=== PATIENT | male | born 1945 | race Caucasian/White ===

== ENCOUNTER 2016-08-13 03:15 | Emergency (ER) | payer OTHER, MEDICARE ==
--- NOTE | 2016-08-13 05:45 | DIAGNOSTIC IMAGING REPORT ---
PROCEDURE: XR CHEST 2 VIEW INDICATION: FEVER TECHNIQUE: PA and lateral views. COMPARISON: None. FINDINGS: Lungs are clear. Heart and mediastinum are normal. Thorax is normal. IMPRESSION: 1. Negative chest.
--- NOTE | 2016-08-13 06:12 | ED ORDER SUMMARY ---
..... Patient: AMBER NEW OrderSheet [facility] VisitID: [id number] [place] [address] 70y, M Registration Date/Time: 08/13/2016 ORDER SHEET Weight: 77.1 kg (stated) Allergies: No Known Drug Allergy GENERAL ORDERS: Chest 2V Urgent (03:57 08/13/2016 Cassie MAGUIRE) (Ack 3:59 CHategekimana) (4:24 RFay) Rapid Influenza Screen (Nasal Pharyngeal) (swab) Urgent (03:58 08/13/2016 Cassie MAGUIRE) (Ack 3:59 Leeekimana) (4:49 Pedro Pablo R.N.) CBC w Diff Urgent (03:58 08/13/2016 Cassie MAGUIRE) (Ack 3:59 CHategekimana) (Cancelled: Change in patient condition4:28 Cassie MAGUIRE) CMP Urgent (03:58 08/13/2016 Cassie MAGUIRE) (Ack 3:59 Liaegekimana) (Cancelled: Change in patient condition4:28 Cassie MAGUIRE) UA-Culture if indicated Urgent (03:58 08/13/2016 Cassie MAGUIRE) (Ack 3:59 Liaegekimana) (4:49 Pedro Pablo Felipe.Laine.) MEDICATION ORDERS: IV FLUIDS: IV NS : initial bolus 1000 mL (1000 mL/hr), then none - (NOW) (03:57 08/13/2016 Cassie MAGUIRE) (Cancelled: Change in patient condition4:28 Cassie MAGUIRE) ORDER SHEET NOTES: [Electronically signed by Florencio Cottrell R.N. (07:02 08/13/2016)] [Electronically signed by Rebecca Laboy MD (21:47 08/17/2016)] [Electronically locked/signed by Florencio Cottrell R.N. (07:02 08/13/2016)]
--- NOTE | 2016-08-13 06:12 | ED CLINICAL REPORT ---
Clinical Report - Physicians/Mid Levels [facility] [address] [place] [address] 08/13/2016 3:18 Patient: AMBER NEW Time Seen: 03:43. Arrived- By private vehicle. Historian- patient. HISTORY OF PRESENT ILLNESS Chief Complaint: VOMITING and DIARRHEA. chills, body aches. This started about 5 hours ago and is now gone. No recent travel. He has had nausea, vomiting and diarrhea. No black stools, bloody stools, abdominal pain, constipation or flank pain. No known contact with a sick individual or change in routine. Has not recently been camping or on antibiotics. Possible bad food exposure. The illness is described as moderate. (Pt states sx started after he ate yesterday evening, but that he did not vomit until about 2200. Pt states that actually, he now feels almost completely better, other than still feeling a little achy.). Similar symptoms previously: Recent medical care: Not recently seen/assessed. REVIEW OF SYSTEMS No fever, difficulty with urination, dark urine, headache or dizziness. No sore throat, cough, chest pain, difficulty breathing or excessive urination. No skin rash, jaundice, back pain, fainting episodes or blurred vision. The patient has had muscle aches. All systems otherwise negative, except as recorded above. PAST HISTORY Problems: Chronic kidney disease stage 3. Myelodysplastic syndrome (clinical). Hypertension. Additional Surgeries: no known surgeries. Medications: Aspir-81 Oral. Atorvastatin Calcium Oral. Tamsulosin HCl Oral. Finasteride Oral. AmLODIPine Besylate Oral. Metoprolol Tartrate Oral. Allergies: No Known Drug Allergy. SOCIAL HISTORY Never smoker. No alcohol use or drug use. ADDITIONAL NOTES The nursing notes have been reviewed. PHYSICAL EXAM Vital Signs: 08/13/2016 07:00 BP: 110/76. HR: 88. RR: 16. O2 saturation: 100%. Temp: 98 F. 08/13/2016 03:30 HR: 100. RR: 16. O2 saturation: 100%. Temp: 98.1 F. Have been reviewed. Appearance: Alert. Oriented X3. No acute distress. Eyes: Pupils equal, round and reactive to light. Eyes normal inspection. ENT: Nose normal. Neck: Normal inspection. Neck supple. CVS: Normal heart rate and rhythm. Heart sounds normal. Pulses normal. Respiratory: No respiratory distress. Breath sounds normal. Abdomen: Soft and nontender. Back: Normal inspection. Skin: Skin warm and dry. Normal skin color. No rash. Normal skin turgor. Extremities: Extremities exhibit normal ROM. No lower extremity edema. Neuro: Oriented X 3. No motor deficit. No sensory deficit. LABS, X-RAYS, AND EKG Chest X-ray: No acute disease. Normal lung markings present. Normal heart size. Mediastinum normal. Great vessels normal. Soft tissues normal. No infiltrate. No fracture. No bony lesion present. Views: PA and lateral. Technique: good. The X-rays were independently viewed by me and interpreted contemporaneously by me. Prior films were not available for comparison. Laboratory Tests: UA-Culture if indicated: (TERRENCE: 08/13/2016 05:39) ( [facility] [place] 08/13/2016 05:55) Final results Test Result Flag Units (Reference) URINE COLOR YELLOW URINE APPEARANCE CLEAR URINE GLUCOSE NEGATIVE (NEGATIVE) URINE BILIRUBIN NEGATIVE (NEGATIVE) URINE KETONE NEGATIVE (NEGATIVE) URINE SPECIFIC GRAVITY 1.010 (1.010-1.030) URINE PH 8.0 (5.0-8.0) URINE PROTEIN NEGATIVE (NEGATIVE) URINE UROBILINOGEN 0.2 EU/dL (0.2-1.0) URINE NITRITE NEGATIVE (NEGATIVE) URINE BLOOD NEGATIVE (NEGATIVE) URINE LEUK ESTERASE NEGATIVE (NEGATIVE) URINE RBC 0-1 rbc/hpf (0-1) URINE WBC 0-1 wbc/hpf (0-1) URINE EPITHELIAL CELLS 0-1 EPI/hpf (0-5) URINE BACTERIA NONE SEEN (NONE SEEN) URINE COMMENT CULT NOT INDICATED URINE CULTURES ARE SET-UP BASED ON THE FOLLOWING CRITERIA:POSITIVE NITRITEPOSITIVE LEUKOCYTE ESTERASEGREATER THAN 10 WHITE BLOOD CELLSMODERATE (2+) OR GREATER BACTERIA Rapid Influenza Screen: (TERRENCE: 08/13/2016 04:40) ( [facility] [place] 08/13/2016 05:07) Final results SPECIMEN DESCRIPTION: SWAB Test Result Flag Units (Reference) RAPID INFLUENZA SCREEN CALLED TO: NA -- DATE: 08/13/16 INFLUENZA A: NEGATIVE SCREEN FOR INFLUENZA A INFLUENZA B: NEGATIVE SCREEN FOR INFLUENZA B . Pulse Oximetry: 08/13/2016 03:30 O2 saturation: 100%. (FIO2 - room air). Interpretation: normal. PROGRESS AND PROCEDURES Course of Care: Pt declined any medication in the ED, stating that his nausea was better, and in fact, that he was thirsty. Pt was given ice chips, which he did tolerate. CXR, influenza test, and UA were all negative. Pt was hemodymically stable, and no emergent condition was identified. Patient and spouse counseled in person regarding the patient's stable condition, test results, diagnosis and need for follow-up. Concerns were addressed. Old medical records reviewed. Disposition: Discharged. Condition: stable and improved. CLINICAL IMPRESSION Acute viral gastroenteritis. INSTRUCTIONS Drink plenty of fluids. (Your urinalysis, flu test, and chest x-ray all look good. You most likely caught one of the many "stomach flu" viruses going around. Generally, these are short-lived, and pass on their own.). Warnings: GENERAL WARNINGS: Return or contact your physician immediately if your condition worsens or changes unexpectedly, if not improving as expected, or if other problems arise. Your Current Medications: CONTINUE TAKING THE FOLLOWING MEDICATIONS: AmLODIPine Besylate Oral. Aspir-81 Oral. Atorvastatin Calcium Oral. Finasteride Oral. Metoprolol Tartrate Oral. Tamsulosin HCl Oral. Follow-up: Follow up with your doctor as needed. Understanding of the discharge instructions verbalized by patient and family. (Electronically signed by Rebecca Laboy MD 08/17/2016 21:47)
--- NOTE | 2016-08-13 06:12 | ED NURSING NOTES ---
Clinical Report - Nurses [facility] [address] [place] [address] 08/13/2016 3:18 Patient: AMBER NEW TRIAGE Acuity: LEVEL 3. Chief Complaint: ABDOMINAL PAIN, NAUSEA and VOMITING and FEVER, CHILLS and ACHES. --03:37 Florencio Cottrell R.N. 03:30 08/13/16. HR: 100. RR: 16. O2 saturation: 100%. Temp: 98.1 F. --03:37 Florencio Cottrell R.N. Weight: 77.1 kg stated. Height/Length: 74 inches Per Patient. BMI: 21.8. --03:36 Florencio Cottrell R.N. Medications Metoprolol Tartrate Oral. --03:31 Florencio Cottrell R.N. AmLODIPine Besylate Oral. --03:32 Florencio Cotrtell R.N. Finasteride Oral. --03:32 Florencio Cottrell R.N. Tamsulosin HCl Oral. --03:32 Florencio Cottrell R.N. Atorvastatin Calcium Oral. --03:32 Florencio Cottrell R.N. Aspir-81 Oral. --03:33 Florencio Cottrell R.N. Allergies No Known Drug Allergy. --07:02 Florencio Cottrell R.N. History Onset. (5 1/2 hours ago). He has had nausea, vomiting, diarrhea and abdominal pain. Last oral intake by patient was yesterday (1900). 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 FALL RISK ASSESSMENT: Fall risk assessment completed. No fall risk identified. NUTRITIONAL RISK ASSESSMENT: The nutritional risk assessment revealed no deficiencies. FUNCTIONAL ASSESSMENT: Functional assessment: no impairments noted. LEARNING NEEDS ASSESSMENT: The learning needs assessment revealed no barriers. SKIN INTEGRITY ASSESSMENT: Skin integrity risk assessment completed. No skin integrity risk identified. --03:37 Florencio Cottrell R.N. PROBLEMS: Chronic kidney disease stage 3. Myelodysplastic syndrome (clinical). Hypertension. --03:35 Florencio Cottrell R.N. Interventions ID band on patient. --03:37 Florencio Cottrell R.N. PHYSICAL ASSESSMENT GENERAL / NEURO / PSYCH: Alert. Oriented X 4. Appears in no acute distress. HEENT: Mucous membranes are pink. RESPIRATORY: Respirations not labored. CVS: Capillary refill less than 2 seconds. SKIN: Skin is warm and dry. --03:37 Florencio Cottrell R.N. NURSING PROGRESS NOTES Patient gowned. Head of bed elevated. Reassurance given. Patient identifiers checked. Call light placed in reach. Bed placed in lowest position. Brakes of bed on. --03:37 Florencio Cottrell R.N. DISPOSITION / DISCHARGE Departure time: 0655. No learning barriers present. Discharge instructions provided and reviewed with the patient. Reviewed warnings. Reviewed medication(s). Treatments reviewed. Reviewed referrals. Patient verbalized understanding. Written instructions provided in Slovenian. The patient was discharged by the physician. He was discharged home. He left the Emergency Department ambulatory and via private vehicle. Patient driving. --07:01 Florencio Cottrell R.N. 07:00 08/13/16. BP: 110/76. HR: 88. RR: 16. O2 saturation: 100%. Temp: 98 F. Pain level now 0/10. --07:01 Florencio Cottrell R.N. Locked/Released at 08/13/2016 7:02 by Florencio Cottrell R.N.
--- NOTE | 2016-08-13 06:12 | ED NURSING NOTES ---
Clinical Report - Nurses [place] [address] [place] [address] 08/13/2016 3:18 Patient: AMBER NEW TRIAGE Acuity: LEVEL 3. Chief Complaint: ABDOMINAL PAIN, NAUSEA and VOMITING and FEVER, CHILLS and ACHES. --03:37 Florencio Cottrell R.N. 03:30 08/13/16. HR: 100. RR: 16. O2 saturation: 100%. Temp: 98.1 F. --03:37 Florencio Cottrell R.N. Weight: 77.1 kg stated. Height/Length: 74 inches Per Patient. BMI: 21.8. --03:36 Florencio Cottrell R.N. Medications Metoprolol Tartrate Oral. --03:31 Florencio Cottrell R.N. AmLODIPine Besylate Oral. --03:32 Florencio Cottrell R.N. Finasteride Oral. --03:32 Florencio Cottrell R.N. Tamsulosin HCl Oral. --03:32 Florencio Cottrell R.N. Atorvastatin Calcium Oral. --03:32 Florencio Cottrell R.N. Aspir-81 Oral. --03:33 Florencio Cottrell R.N. Allergies No Known Drug Allergy. --07:02 Florencio Cottrell R.N. History Onset. (5 1/2 hours ago). He has had nausea, vomiting, diarrhea and abdominal pain. Last oral intake by patient was yesterday (1900). 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 FALL RISK ASSESSMENT: Fall risk assessment completed. No fall risk identified. NUTRITIONAL RISK ASSESSMENT: The nutritional risk assessment revealed no deficiencies. FUNCTIONAL ASSESSMENT: Functional assessment: no impairments noted. LEARNING NEEDS ASSESSMENT: The learning needs assessment revealed no barriers. SKIN INTEGRITY ASSESSMENT: Skin integrity risk assessment completed. No skin integrity risk identified. --03:37 Florencio Cottrell R.N. PROBLEMS: Chronic kidney disease stage 3. Myelodysplastic syndrome (clinical). Hypertension. --03:35 Florencio Cottrell R.N. Interventions ID band on patient. --03:37 Florencio Cottrell R.N. PHYSICAL ASSESSMENT GENERAL / NEURO / PSYCH: Alert. Oriented X 4. Appears in no acute distress. HEENT: Mucous membranes are pink. RESPIRATORY: Respirations not labored. CVS: Capillary refill less than 2 seconds. SKIN: Skin is warm and dry. --03:37 Florencio Cottrell R.N. NURSING PROGRESS NOTES Patient gowned. Head of bed elevated. Reassurance given. Patient identifiers checked. Call light placed in reach. Bed placed in lowest position. Brakes of bed on. --03:37 Florencio Cottrell R.N. DISPOSITION / DISCHARGE Departure time: 0655. No learning barriers present. Discharge instructions provided and reviewed with the patient. Reviewed warnings. Reviewed medication(s). Treatments reviewed. Reviewed referrals. Patient verbalized understanding. Written instructions provided in Portuguese. The patient was discharged by the physician. He was discharged home. He left the Emergency Department ambulatory and via private vehicle. Patient driving. --07:01 Florencio Cottrell R.N. 07:00 08/13/16. BP: 110/76. HR: 88. RR: 16. O2 saturation: 100%. Temp: 98 F. Pain level now 0/10. --07:01 Florencio Cottrell R.N. Locked/Released at 08/13/2016 7:02 by Florencio Cottrell R.N.
--- NOTE | 2016-08-13 06:12 | ED ORDER SUMMARY ---
..... Patient: AMBER NEW OrderSheet [facility] VisitID: [id number] [place] [address] 70y, M Registration Date/Time: 08/13/2016 ORDER SHEET Weight: 77.1 kg (stated) Allergies: No Known Drug Allergy GENERAL ORDERS: Chest 2V Urgent (03:57 08/13/2016 Cassie MAGUIRE) (Ack 3:59 CHategekimana) (4:24 RFay) Rapid Influenza Screen (Nasal Pharyngeal) (swab) Urgent (03:58 08/13/2016 Cassie MAGUIRE) (Ack 3:59 Leeekimana) (4:49 Pedro Pablo R.N.) CBC w Diff Urgent (03:58 08/13/2016 Cassie MAGUIRE) (Ack 3:59 CHategekimana) (Cancelled: Change in patient condition4:28 Cassie MAGUIRE) CMP Urgent (03:58 08/13/2016 Cassie MAGUIRE) (Ack 3:59 Liaegekimana) (Cancelled: Change in patient condition4:28 Cassie MAGUIRE) UA-Culture if indicated Urgent (03:58 08/13/2016 Cassie MAGUIRE) (Ack 3:59 Liaegekimana) (4:49 Pedro Pablo Felipe.Laine.) MEDICATION ORDERS: IV FLUIDS: IV NS : initial bolus 1000 mL (1000 mL/hr), then none - (NOW) (03:57 08/13/2016 Cassie MAGUIRE) (Cancelled: Change in patient condition4:28 Cassie MAGUIRE) ORDER SHEET NOTES: [Electronically signed by Florencio Cottrell R.N. (07:02 08/13/2016)] [Electronically signed by Rebecca Laboy MD (21:47 08/17/2016)] [Electronically locked/signed by Florencio Cottrell R.N. (07:02 08/13/2016)]
--- NOTE | 2016-08-17 21:47 | ED MED RECONCILIATION SUMMARY ---
Patient: AMBER NEW Medication Reconciliation Report [facility] VisitID: [id number] [address] [place] [address] 70y, M Registration Date/Time: 08/13/2016 Weight: 77.1 kg Height/Length: 74 in. BMI: 21.8 ALLERGIES: No Known Drug Allergy The patient's Home Medications are listed below: CONTINUE TAKING THE FOLLOWING MEDICATIONS: AmLODIPine Besylate Oral Aspir-81 Oral Atorvastatin Calcium Oral Finasteride Oral Metoprolol Tartrate Oral Tamsulosin HCl Oral The source(s) of the original Home Medication information: Not obtained. The following Medications were given to the patient in the Emergency Department: None. The following Medications were prescribed to the patient: None.
--- NOTE | 2016-08-17 21:47 | ED MAR SUMMARY ---
..... Medication Administration Record [facility] [address] [place], [place] [id number] Patient: AMBER NEW Visit ID: [id number] 70y, M Weight: 77.1 kg Height/Length: 74 in BMI: 21.8 ALLERGIES: No Known Drug Allergy
--- NOTE | 2016-08-17 21:47 | ED MAR SUMMARY ---
..... Medication Administration Record [facility] [address] [place], [place] [id number] Patient: AMBER NEW Visit ID: [id number] 70y, M Weight: 77.1 kg Height/Length: 74 in BMI: 21.8 ALLERGIES: No Known Drug Allergy
--- NOTE | 2016-08-17 21:47 | ED MED RECONCILIATION SUMMARY ---
Patient: AMBER NEW Medication Reconciliation Report [facility] VisitID: [id number] [address] [place] [address] 70y, M Registration Date/Time: 08/13/2016 Weight: 77.1 kg Height/Length: 74 in. BMI: 21.8 ALLERGIES: No Known Drug Allergy The patient's Home Medications are listed below: CONTINUE TAKING THE FOLLOWING MEDICATIONS: AmLODIPine Besylate Oral Aspir-81 Oral Atorvastatin Calcium Oral Finasteride Oral Metoprolol Tartrate Oral Tamsulosin HCl Oral The source(s) of the original Home Medication information: Not obtained. The following Medications were given to the patient in the Emergency Department: None. The following Medications were prescribed to the patient: None.
--- NOTE | 2016-08-17 21:47 | ED DISCHARGE INSTRUCTIONS ---
Patient: AMBER NEW General Instructions [facility] VisitID: [id number] [place] [address] 70y, M Registration Date/Time: 08/13/2016 Acute viral gastroenteritis. INSTRUCTIONS Drink plenty of fluids. (Your urinalysis, flu test, and chest x-ray all look good. You most likely caught one of the many "stomach flu" viruses going around. Generally, these are short-lived, and pass on their own.). Warnings: GENERAL WARNINGS: Return or contact your physician immediately if your condition worsens or changes unexpectedly, if not improving as expected, or if other problems arise. Your Current Medications: CONTINUE TAKING THE FOLLOWING MEDICATIONS: AmLODIPine Besylate Oral. Aspir-81 Oral. Atorvastatin Calcium Oral. Finasteride Oral. Metoprolol Tartrate Oral. Tamsulosin HCl Oral. Follow-up: Follow up with your doctor as needed. Understanding of the discharge instructions verbalized by patient and family. ADDITIONAL INFORMATION Viral Gastroenteritis (6Yr-Adult) Gastroenteritis is another name for thestomach flu.It is most often caused by a virus that affects the stomach and intestinal tract. Symptoms include stomach cramping and fever, vomiting and/or diarrhea, and can last from 2 to 7 days. The danger from repeated vomiting or diarrhea is dehydration. This is the loss of too much water and minerals from the body. When this occurs, body fluids must be replaced. Antibiotics are not effective for this illness, but simple home treatment will be helpful. Home Care If symptoms are severe, rest at home for the next 24 hours. Avoid tobacco, caffeine, and alcohol use, which can worsen symptoms. Acetaminophen (Tylenol) or ibuprofen (Motrin, Advil) may be usedfor fever or pain unless another medication was prescribed. NOTE: If you have chronic liver or kidney disease or ever had a stomach ulcer or GI bleeding, talk with your doctor before using these medicines. Aspirin should never be used in anyone under 18 years of age who is ill with a fever. It may cause severe liver damage. If medicines for diarrhea or vomiting were prescribed, be sure they are takenonly as directed. If vomiting, drink small amounts of clear fluids (such as water, sports drinks, clear sodas) at frequent intervals to prevent dehydration. Start with 1 to 2 tablespoons every 10 minutes. Once vomiting stops, follow these guidelines: During The First 12 To 24 Hours follow the diet below: Beverages: Sport drinks like Gatorade, soft drinks without caffeine; flor ryder, mineral water (plain or flavored), decaffeinated tea and coffee. Soups: Clear broth, consomm and bouillon Desserts: Plain gelatin (Jell-O), Popsicles and fruit juice bars. During The Next 24 Hours you may add the following to the above: Hot cereal, plain toast, bread, rolls, crackers Plain noodles, rice, mashed potatoes, chicken noodle or rice soup Unsweetened canned fruit (avoid pineapple), bananas Limit fat intake to less than 15 grams per day by avoiding margarine, butter, oils, mayonnaise, sauces, gravies, fried foods, peanut butter, meat, poultry, and fish. Limit fiber; avoid raw or cooked vegetables, fresh fruits (except bananas), and bran cereals. Limit caffeine and chocolate. Do not use spices or seasonings except salt. During The Next 24 Hours The patient can gradually resume a normal diet as symptoms lessen. Preventing Spread Hand washing with soap and water is the best way to prevent the spread of viruses. Caregivers should wash their hands before andafter touching the sick person. The sick person, as well as everyone in the family,should wash their hands after using the toilet and before meals. Clean the toilet after each use. People with diarrhea should not prepare food for others. If you are preparing your own foods, wash your hands before and after. Follow Up with your doctor as advised. Call your doctor if you are not improving over the next 2 to 3 days. If a stool (diarrhea) sample was taken, you may call in 2 days (or as directed) for the results. Get Prompt Medical Attention if any of the following occur: Increasing abdominal pain Continued vomiting (unable to keep liquids down) Frequent diarrhea (more than 5 times a day) Blood in vomit or stool (black or red color) Dark urine, reduced urine output, or extreme thirst Weakness, dizziness, fainting Drowsiness, confusion, stiff neck, or seizure Fever of 100.4F (38C) oral or higher, not better with fever medication New rash You have been given the following additional information: Gastroenteritis, Viral (6Y-Adult) (Electronically signed by Rebecca Laboy MD 08/17/2016 21:47)
== END 2016-08-13 06:50 | disposition home or self-care (01) ==
LOC: ED SRH 03:15
DX: A08.4 Viral intestinal infection, unspecified (principal); I12.9 Hypertensive chronic kidney disease with stage 1 through stage 4 chronic kidney disease, or unspecified chronic kidney disease; N18.3 Chronic kidney disease, stage 3 (moderate); Z79.82 Long term (current) use of aspirin
CPT/HCPCS: 90004; 91400